=== PATIENT | female | born 1995 | race Caucasian/White ===

== ENCOUNTER 2018-08-09 16:37 | Outpatient (CLI) | payer OTHER | END 2018-08-09 16:38 | disposition home or self-care (01) | LOC: CTENTCT 16:37 | PROVIDERS: ATTEND Otolaryngology Plastic Surgery within the Head & Neck | DX: J32.9 Chronic sinusitis, unspecified (principal) | CPT/HCPCS: 70486 ==

== ENCOUNTER 2018-08-31 08:55 | Day surgery (SDC) | payer OTHER ==
[2018-08-30 13:27] VITALS: BMI 27.4
[2018-08-31] MEDS ORDERED: Oxymetazoline HCl 0.05% ( 15 ML ) ONE ×2 (10:42→10:54)
[2018-08-31] MEDS ORDERED: Meperidine HCl/PF 25 MG/ML VIAL ONE (10:50)
[2018-08-31] MEDS ORDERED: Fentanyl 100 MCG/2 ML VIAL ONE (10:50)
[2018-08-31] MEDS ORDERED: Scopolamine 1.5 mg/72 hour Patch ONE (10:53)
[2018-08-31] MEDS ORDERED: Midazolam HCl 2 mg/2 ml Vial ONE (10:53)
[2018-08-31] MEDS ORDERED: Lidocaine 1% w/Epinephrine 1:100K 20 ML VIAL ONE (10:54)
[2018-08-31] MEDS ORDERED: Hydrocodone-Acetamin 15 ML UDCUP ONE (13:33)
[2018-09-01 11:24] LABS: Allergen,Alternaria altern.IgE 8.14 kU/L (Less than 0.10); Allergen,Ash white IgE Less than 0.10 kU/L (Less than 0.10); Allergen,Aspergillus fumig.IgE 0.49 kU/L (Less than 0.10); Allergen,Beef IgE Less than 0.10 kU/L (Less than 0.10); Allergen,Bermuda grass IgE 0.74 kU/L (Less than 0.10); Allergen,Cat dander IgE 0.11 kU/L (Less than 0.10); Allergen,Cedar mountain IgE 1.64 kU/L (Less than 0.10); Allergen,Chocolate/Cacao IgE Less than 0.10 kU/L (Less than 0.10); Allergen,Cladosporium herb.IgE 0.33 kU/L (Less than 0.10); Allergen,Corn IgE Less than 0.10 kU/L (Less than 0.10); Allergen,Cottonwood Tree IgE Less than 0.10 kU/L (Less than 0.10); Allergen,Crab IgE Less than 0.10 kU/L (Less than 0.10); Allergen,Curvularia lunata IgE 1.54 kU/L (Less than 0.10); Allergen,D. pteronyssinus IgE Less than 0.10 kU/L (Less than 0.10); Allergen,Dog dander IgE Less than 0.10 kU/L (Less than 0.10); Allergen,Egg white IgE Less than 0.10 kU/L (Less than 0.10); Allergen,Egg yolk IgE Less than 0.10 kU/L (Less than 0.10); Allergen,Elm AmericanWhite IgE Less than 0.10 kU/L (Less than 0.10); Allergen,Johnson grass IgE 1.71 kU/L (Less than 0.10); Allergen,Lamb's qrters Gooseft Less than 0.10 kU/L (Less than 0.10); Allergen,Mesquite IgE Less than 0.10 kU/L (Less than 0.10); Allergen,Milk IgE Less than 0.10 kU/L (Less than 0.10); Allergen,Oat IgE 0.17 kU/L (Less than 0.10); Allergen,Peanut IgE Less than 0.10 kU/L (Less than 0.10); Allergen,Pecan nut IgE Less than 0.10 kU/L (Less than 0.10); Allergen,Pecan/Hickory IgE Less than 0.10 kU/L (Less than 0.10); Allergen,Plantain English IgE Less than 0.10 kU/L (Less than 0.10); Allergen,Pork IgE Less than 0.10 kU/L (Less than 0.10); Allergen,Ragweed giant IgE 0.11 kU/L (Less than 0.10); Allergen,Rice IgE Less than 0.10 kU/L (Less than 0.10); Allergen,Saltwort RussianThist Less than 0.10 kU/L (Less than 0.10); Allergen,Shrimp IgE Less than 0.10 kU/L (Less than 0.10); Allergen,Soybean IgE Less than 0.10 kU/L (Less than 0.10); Allergen,Sycamore Maple Lf IgE Less than 0.10 kU/L (Less than 0.10); Allergen,Timothy grass IgE 3.16 kU/L (Less than 0.10); Allergen,Tomato IgE Less than 0.10 kU/L (Less than 0.10); Allergen,Wheat IgE 0.12 kU/L (Less than 0.10); Allergen,Wormwood IgE Less than 0.10 kU/L (Less than 0.10); IgE Total Antibody 84.3 kU/L (0-192.0)
--- NOTE | 2018-09-01 15:31 | OP ---
DATE OF PROCEDURE: 08/31/2018 PREOPERATIVE DIAGNOSES: 1. Chronic rhinosinusitis. 2. Allergic fungal sinusitis. 3. Nasal polyposis. 4. Bilateral inferior turbinate hypertrophy. 5. Nasal obstruction. POSTOPERATIVE DIAGNOSES: 1. Chronic rhinosinusitis. 2. Allergic fungal sinusitis. 3. Nasal polyposis. 4. Bilateral inferior turbinate hypertrophy. 5. Nasal obstruction. PROCEDURES PERFORMED: 1. Bilateral endoscopic sinus surgery, frontal sinusotomy. 2. Right endoscopic sinus surgery, total ethmoidectomy with removal of tissue. 3. Right endoscopic sinus surgery, maxillary antrostomy with removal of tissue. 4. Left endoscopic sinus surgery, total ethmoidectomies. 5. Left endoscopic sinus surgery, maxillary antrostomies. 6. Bilateral inferior turbinate submucosal resection. ESTIMATED BLOOD LOSS: 50 mL. COMPLICATIONS: None. ANESTHESIA: GETA. DESCRIPTION OF PROCEDURE: The patient was taken to the operating room and placed supine on the table. General endotracheal anesthesia was obtained by the anesthesia staff. Tube was secured in the left lower lip. The patient was then placed in a beach chair position. Following this, the patient was prepped and draped for standard nasal procedures. Then, Afrin pledgets were removed from the nasal cavity. 1% lidocaine with 1:100,000 epinephrine was injected into the inferior turbinates, middle turbinates, and lateral nasal wall. Following this, the nasal cavity was entered with a 0-degree endoscope. Large nasal polyps were encountered and were removed using the microdebrider. Following this, the uncinate process was visualized on the right side. Nasal polyps were completely obstructing the right nasal cavity, which were removed. The uncinate was noted to be anteriorly fractured and displaced from the nasal polyps. The uncinate on the right side was removed using the 0-degree microdebrider. On the left side, the uncinate was then anteriorly fractured with the ball-ended probe and was removed using the microdebrider as well. The maxillary antrostomy on the right side was then further widened with the 40-degree microdebrider blade. The majority of the right medial maxillary sinus wall was atrophic and was nearly completely obliterated by nasal polyps and allergic fungal disease. This area was cleaned and widened, and copious amounts of allergic fungal debris and nasal polyps were removed from this right maxillary sinus and ethmoidal area. Fungal debris was also removed from the posterior ethmoidal cells on this right side. Working from posterior to anterior, keeping the skull base ethmoidal cells were opened, and nasal polyps and allergic fungal debris were removed. On the left side, the natural maxillary sinus ostia was identified and was gently widened using the curved microdebrider. The ethmoidal bulla on the left side was then punctured on its medial and inferior aspect and was removed using the microdebrider. The grand lamella on the left side was then punctured into the posterior ethmoidal cells. Working from posterior to anterior, the ethmoidal cells were opened in a mucosal sparing technique. Following this, the 45-degree endoscope along with the 40-degree microdebrider blade was used to further identify the frontal sinus ostia bilaterally and widen the frontal sinus ostia bilaterally using a curved microdebrider. Following this, the inferior turbinates were punctured on the anterior and inferior aspect, and submucosal resection was performed of the anterior-inferior aspect of the inferior turbinates bilaterally. Following this, the nasal cavity was irrigated. Mirapex was placed within the middle meatus. On the right side, a Merocel tampon pack was placed in the nasal cavity to assist with bleeding issues as well. The patient tolerated the procedure well. Job ID: [id number]
== END 2018-08-31 16:45 | disposition home or self-care (01) ==
LOC: SDC 08:55
PROVIDERS: ATTEND Otolaryngology Plastic Surgery within the Head & Neck
PROC: 09TL8ZZ Resection of Nasal Turbinate, Via Natural or Artificial Opening Endoscopic (ICD-10-PCS; principal; 2018-08-31)
PROC: 099R8ZZ Drainage of Left Maxillary Sinus, Via Natural or Artificial Opening Endoscopic (ICD-10-PCS; principal; 2018-08-31)
PROC: 099Q8ZZ Drainage of Right Maxillary Sinus, Via Natural or Artificial Opening Endoscopic (ICD-10-PCS; principal; 2018-08-31)
DX: J32.8 Other chronic sinusitis (principal); J33.9 Nasal polyp, unspecified; J34.3 Hypertrophy of nasal turbinates; J34.89 Other specified disorders of nose and nasal sinuses; F41.9 Anxiety disorder, unspecified
CPT/HCPCS: 82785; 85014; 87070; 87102; 87205; 87206; J2001; J2175; J2250; J3010